=== PATIENT | female | born 1990 | race Hispanic/Latino ===

== ENCOUNTER 2017-04-01 17:21 | Outpatient (CLI) | payer MEDICAID ==
[2017-04-01 20:14] VITALS: BP 115/80
[2017-04-01] MEDS ORDERED: VISTARIL ONE (21:11)
[2017-04-01] MEDS ORDERED: VISTARIL PO ONE (22:00)
== END 2017-04-01 22:00 | disposition home or self-care (01) ==
LOC: TRG 17:21 → LD 17:22 → TRG 22:00
PROVIDERS: ATTEND Obstetrics & Gynecology
DX: O48.0 Post-term pregnancy (principal); Z3A.40 40 weeks gestation of pregnancy
CPT/HCPCS: Q0177

== ENCOUNTER 2017-04-02 02:50 | Inpatient (IN) | payer MEDICAID ==
[2017-04-02] MEDS ORDERED: LACTATED RINGERS 1,000 ML ONE (03:17)
[2017-04-02] MEDS ORDERED: PITOCin/NS 20 UNIT/1000ML DRIP 20,000 MILLIUNITS/1,000 ML BAG IV ONE (03:35)
[2017-04-02] MEDS ORDERED: XYLOCAINE 2% INFILTRATI ONE (04:02)
[2017-04-02] MEDS ORDERED: MINERAL OIL PO PRN (04:02)
[2017-04-02] MEDS ORDERED: PHENERGAN PO PRN ×2 (04:02→07:25)
[2017-04-02] MEDS ORDERED: ePHEDrine SULFATE IV PRN (04:02)
[2017-04-02] MEDS ORDERED: STADOL IV PRN (04:02)
--- NOTE | 2017-04-02 04:02 | History and Physical Report ---
History of Present Illness Date of examination: 04/02/17 Date of admission: 04/02/17 02:59 History of present illness: Patient presents to L&D with complaints of regular contraction cervical exam by RN 8cm changed from previous 3cm. Menstrual History Regularity: regular Menses every: 28 days Duration: 7 LMP: 06/19/2016 LMP reliability: definite LMP character: normal test type: urine test Date: 08/03/2016 BC at conception: none Planned ? 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 of genital herpes: no Partner hx. of genital herpes: no Genetic History Congenital Heart Defect: Mom: no Dad: no [place] Disease: Mom: no Dad: no Thalassemia Mom: no Dad: no Neural Tube Defect Mom: no Dad: no Down's Syndrome Mom: no Dad: no Robbie-Sachs Mom: no Dad: no Sickle Cell Disease/Trait Mom: no Dad: no Hemophilia Mom: no Dad: no Muscular Dystrophy Mom: no Dad: no Cystic Fibrosis Mom: no Dad: no [place] Chorea Mom: no Dad: no Mental Retardation Mom: no Dad: no Fragile X Mom: no Dad: no Other Genetic/Chromosomal Disorder Mom: no Dad: no Child w/other defect Mom: no Dad: no Enviromental Exposures Xray Exposure: no Medication, drug, or alcohol use since LMP: no Chemical/Other Exposure: no Exposure to Cat Liter: no Hx of Parvovirus (Fifth Disease): no Current Allergies: * SULFA (Critical) Past History Past Medical History: other (See HPI) Past Surgical History: other (See HPI) 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) Family/Genetic History: other (See HPI) Social history: other (See HPI) - Obstetrical History Expected Date of Delivery: 03/26/17 Actual Gestation: 41 Week(s) 0 Day(s) : 3 Para: 1 Hx # Term Pregnancies: 1 Number of Pregnancies: 0 Spontaneous Abortions: 1 Induced : 0 Number of Living Children: 1 Medications and Allergies Allergies Allergy/AdvReac Type Severity Reaction Status Date / Time Sulfa (Sulfonamide AdvReac Severe Hives Verified 04/02/17 04:36 Antibiotics) Review of Systems All systems: negative - Physical Exam Breasts: Positive: deferred Cardiovascular: Regular rate Lungs: Positive: Normal air movement Abdomen: Positive: normal appearance, soft Genitourinary (Female): Positive: normal external genitalia Vagina: Positive: normal moisture Cervix: Negative: lesion, discharge Uterus: Positive: enlarged Anus/Rectum: Positive: normal perianal skin Extremities: Positive: normal - Obstetrical FHR: category 2 Uterine Contraction Monitor Mode: External Uterine Contraction Pattern: Regular Uterine Tone Measurement Phase: Contraction Uterine Contraction Intensity: Moderate Results Result Diagrams: 04/02/17 03:40 All other labs normal. Assessment and Plan - Patient Problems (1) 41 weeks gestation of Current Visit: Yes Status: Acute (2) Anxiety Current Visit: Yes Status: Acute (3) Active labor at term Current Visit: Yes Status: Acute Plan to address problem: Admit to L&D see orders
[2017-04-02] MEDS ORDERED: LACTATED RINGERS 1,000 ML IV SCH (05:00)
[2017-04-02] MEDS ORDERED: PITOCin/NS 20 UNIT/1000ML DRIP 20 UNITS/1,000 ML BAG IV SCH (05:00)
[2017-04-02 05:07] LABS: Basophils % (Auto) 0.4 % (0.0-1.8); Eosinophils % (Auto) 0.3 % (0.0-4.3); Hematocrit 36.8 % (30.3-42.9); Hemoglobin 12.9 gm/dl (10.1-14.3); Mean Corpuscular HGB Conc 35 % (30-34); Mean Corpuscular Hemoglobin 32 pg (28-32); Mean Corpuscular Volume 91 fl (79-97); Platelet Count 260 K/mm3 (140-440); Red Blood Count 4.05 M/mm3 (3.65-5.03)
--- NOTE | 2017-04-02 05:08 | Procedure Note ---
OB Delivery Note - Delivery Date of Delivery: 04/02/17 Surgeon: AIXA PAIZ Estimated blood loss: 300cc - Vaginal Delivery presentation: vertex Delivery position: OA Intrapartum events: mult.variable deceleratio Delivery induction: none Delivery monitor: external FHT, external uterine, internal FHT Route of delivery: Delivery placenta: spontaneous Delivery cord: nuchal cord Episiotomy: midline Delivery laceration: 2nd degree Delivery repair: vicryl Anesthesia: local - Infant A at 1 minute: 8 at 5 minutes: 9 Infant Gender: Male
--- NOTE | 2017-04-02 06:24 | Event Note ---
Date: 04/02/17 (CNM visit immediately PP) Pt w/o c/o pain. Voices concerns @ bleeding States she had heavy bleeding after last delivery and is concerned. At time of visit FF @ the josi pan. Pt also states they decline circumcision for their male NB. Pt stable Continue with routine PP pathway.
[2017-04-02] MEDS ORDERED: MILK OF MAGNESIA PO PRN (07:25)
[2017-04-02] MEDS ORDERED: LANSINOH TP PRN (07:25)
[2017-04-02] MEDS ORDERED: BENADRYL PO PRN (07:25)
[2017-04-02] MEDS ORDERED: TYLENOL PO PRN (07:25)
[2017-04-02] MEDS ORDERED: DULCOLAX PR PRN (07:25)
[2017-04-02] MEDS ORDERED: TUCKS PAD TP PRN (07:25)
[2017-04-02] MEDS ORDERED: SODIUM CHLORIDE FLUSH SYRINGE 10 ML IV NR (07:25)
[2017-04-02] MEDS ORDERED: NORCO 5/325 PO PRN (07:25)
[2017-04-02] MEDS: MOTRIN PO SCH ×2 (07:45→18:14)
[2017-04-02] MEDS: PRENATAL VITAMIN PO SCH (13:47)
[2017-04-02] MEDS: COLACE PO SCH ×2 (13:47→22:15)
[2017-04-02 18:11] LABS: Hematocrit 31.7 % (30.3-42.9); Hemoglobin 11.3 gm/dl (10.1-14.3)
[2017-04-02] MEDS ORDERED: DERMOPLAST TP PRN (19:02)
[2017-04-03] MEDS: MOTRIN PO SCH ×3 (00:07→06:10)
--- NOTE | 2017-04-03 08:08 | Progress Note ---
Assessment and Plan patient doing well, no complaints. Desires d/c home today. breast feeding without difficulty. KASSIDY championSAAvel, H&H 11.3/31.7. f/u in office as routine. - Patient Problems (1) (normal spontaneous vaginal delivery) Current Visit: Yes Status: Acute Subjective - Subjective Date of service: 04/03/17 Principal diagnosis: day #1 s/p Patient reports: appetite normal, voiding normally, pain well controlled, ambulating normally, no dizzy ambulation, no nauseated : doing well, nursing well Objective - Vital Signs Latest vital signs: Vital Signs Temp Pulse Resp BP 04/03/17 06:10 18 04/03/17 01:28 98.6 F 95 H 18 122/81 04/03/17 00:07 18 04/02/17 16:00 98.0 F 82 18 119/70 04/02/17 12:00 98.0 F 102 H 18 102/71 Intake and Output 04/02/17 04/03/17 04/03/17 22:59 06:59 14:59 Intake Total 240 Output Total 300 Balance -60 Intake: Oral 240 Output: Urine 300 Void 300 Other: Total, Intake Amount 240 Total, Output Amount 300 # Voids Void 1 - Exam Breasts: Present: normal, Cardiovascular: Present: Regular rate Lungs: Present: Clear to auscultation, Normal air movement Abdomen: Present: normal appearance, soft, normal bowel sounds Vulva: both: laceration/episiotomy Uterus: Present: normal, firm, fundal height at umbilicus Extremities: Present: normal Incision: Present: normal, dry, intact
--- NOTE | 2017-04-03 08:12 | Discharge Summary ---
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] Routine Reason For Exam: assistance with , SNS Primary care physician: AIXA PAIZ Hospitalization Reason for admission: active labor Delivery: Episiotomy: midline Incision: normal, dry, intact Other procedures: none complications: none Discharge diagnosis: IUP at term delivered baby: male Hospital course: uncomplicated vaginal Condition at discharge: Good Disposition: DC-01 TO HOME OR SELFCARE - Discharge Diagnoses (1) (normal spontaneous vaginal delivery) Status: Acute Plan - Discharge Medications Prescriptions: Ibuprofen [Motrin 800 MG tab] 800 mg PO TID PRN #30 tablet PRN Reason: Pain Lidocain2.5%/Prilocai2.5% [Emla] 5 gm TP PRN #1 tube - Provider Discharge Summary Activity: routine, no sex for 6 weeks, no heavy lifting 4 weeks, no strenuous exercise Diet: routine Instructions: routine Additional instructions: [] Smoking cessation referral if applicable(refer to patient education folder for contact #) [] Refer to [facility] Booklet Call your doctor immediately for: * Fever > 100.5 * Heavy vaginal bleeding ( >1 pad per hour) * Severe persistent headache * Shortness of breath * Reddened, hot, painful area to leg or breast * Drainage or odor from incision. * Keep incision clean and dry at all times and follow doctor's instructions regarding bathing/showering - Follow up plan Follow up: AIXA PAIZ MD [Primary Care Provider] - 05/08/17 (Congrtaulations! Please call [phone] to schedule your visit in 4 weeks. Call for any questions or concerns. )
[2017-04-03] MEDS: COLACE PO SCH (08:43)
[2017-04-03] MEDS: PRENATAL VITAMIN PO SCH (08:43)
[2017-04-03 17:41] VITALS: BP 126/76
== END 2017-04-03 15:15 | disposition home or self-care (01) | DRG 775 ==
LOC: TRG 02:50 → LD 02:59 → OB 07:12
PROVIDERS: ADMIT Obstetrics & Gynecology; ATTEND Obstetrics & Gynecology
PROC: 10E0XZZ Delivery of Products of Conception, External Approach (ICD-10-PCS; principal; 2017-04-02)
PROC: 0W8NXZZ Division of Female Perineum, External Approach (ICD-10-PCS; 2017-04-02)
DX: O69.81X0 Labor and delivery complicated by cord around neck, without compression, not applicable or unspecified (principal); O76 Abnormality in fetal heart rate and rhythm complicating labor and delivery; O99.344 Other mental disorders complicating childbirth; F41.9 Anxiety disorder, unspecified; O70.1 Second degree perineal laceration during delivery; Z3A.41 41 weeks gestation of pregnancy; Z37.0 Single live birth; Z88.2 Allergy status to sulfonamides
CPT/HCPCS: 36415; 85014; 85018; 85025; 86850; 86900; 86901; 99211; A6250; G0463; J2590; J7120